=== PATIENT | female | born 2000 | race Caucasian/White ===

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

== ENCOUNTER 2018-05-22 16:32 | Emergency (ER) | payer OTHER ==
[~2018-05-22] VITALS: Ht 157.5 cm; Wt 61.2 kg
[2018-05-22] MEDS ORDERED: SYNTHROID50 MCG (17:00)
== END 2018-05-22 19:27 | disposition home or self-care (01) ==
LOC: ER 16:32
DX: R21 Rash and other nonspecific skin eruption (principal)